=== PATIENT | male | born 1985 | race Caucasian/White ===

== ENCOUNTER 2017-04-06 20:15 | Emergency (ER) | payer SELFPAY ==
[~2017-04-06] VITALS: Ht 172.7 cm; Wt 86.2 kg
[2017-04-06] MEDS ORDERED: DIAZ10TA PO (21:00)
[2017-04-06] MEDS ORDERED: PROP20TA7 PO (21:00)
[2017-04-06] MEDS ORDERED: CLON0.1T PO (21:00)
[2017-04-06] MEDS ORDERED: GABA800T2 PO (21:00)
[2017-04-06] MEDS ORDERED: MELO-105 PO (21:00)
[2017-04-06] MEDS ORDERED: TRAZ-144 PO (21:00)
[2017-04-06] MEDS ORDERED: GUAI-175 PO (21:00)
[2017-04-06] MEDS ORDERED: MIRT30TA7 PO (21:00)
[2017-04-06] MEDS ORDERED: METH500T PO (21:00)
[2017-04-06] MEDS ORDERED: NYQUIL PO (21:00)
[2017-04-06] MEDS ORDERED: SUBUTEX SL (21:00)
--- NOTE | 2017-04-06 21:00 | NUR ---
Pt ambulated to room with steady gait and placed on monitor. Pt c/o generalized chest pain, cough, pain with deep breathing and hoarse throat for 2 days. Pt sts he shared cigarettes with his two of his roomates that recently had pna and is concerned he might have pna. Pt NSR on monitor. Resp even and unlabored, no resp distress noted. Pt seen by Dr. Serrano, awaiting further orders. EKG obtained.
[2017-04-06 21:15] LABS: BASOPHILS # (AUTO) 0.1 K/uL (0.0-8.0); BASOPHILS % (AUTO) 0.9 % (0.0-2.0); EOSINOPHILS % (AUTO) 13.3 % (0.0-7.0); HEMATOCRIT 39.3 % (40-50); HEMOGLOBIN 13.1 G/DL (14.0-18.0); LYMPHOCYTES # (AUTO) 2.7 K/UL (0.8-4.8); LYMPHOCYTES % (AUTO) 34.7 % (20.5-51.5); MEAN CORPUSCULAR HEMOGLOBIN 27.7 UUG (27.0-31.0); MEAN CORPUSCULAR HGB CONC 33 g/dL (32.0-37.0); MEAN CORPUSCULAR VOLUME 82.9 FL (82.0-92.0); MONOCYTES # (AUTO) 1.1 K/UL (0.1-1.30); MONOCYTES % (AUTO) 13.9 % (0.0-11.0); NEUTROPHILS # (AUTO) 2.8 K/UL (1.8-8.9); NEUTROPHILS % (AUTO) 37.2 % (38.5-71.5); PLATELET COUNT (AUTO) 252 K/UL (150-450); RED BLOOD CELL COUNT(AUTO) 4.74 MIL/UL (4.7-6.1); WHITE BLOOD COUNT (AUTO) 7.7 K/UL (4.0-11.2)
[2017-04-06 21:16] LABS: CREATININE 1.1 mg/dL (0.6-1.3); POTASSIUM 3.9 mmol/L (3.5-5.1)
[2017-04-06 21:28] LABS: BILIRUBIN,DIRECT 0.1 mg/dL (0.0-0.2); BILIRUBIN,TOTAL 0.2 mg/dL (0.2-1.0); TOTAL PROTEIN, SERUM 7.1 g/dL (6.4-8.2)
--- NOTE | 2017-04-06 22:31 | NUR ---
Pt not wanting to stay for repeat troponin. Pt stable for discharge per Dr. Serrano. Pt and his detox district administrative assistant given ACI. Both verbalized understanding of dc instructions. Pt ambulated out of ER with steady gait.
[2017-04-06 22:43] VITALS: BP 107/50
== END 2017-04-06 22:44 | disposition home or self-care (01) ==
LOC: ER 20:16
DX: J20.9 Acute bronchitis, unspecified (principal); R07.89 Other chest pain; F11.20 Opioid dependence, uncomplicated; F17.200 Nicotine dependence, unspecified, uncomplicated
CPT/HCPCS: 36415; 70030-TC; 71010; 85025; 93005; A4663; J7512

== ENCOUNTER 2017-04-15 14:41 | Inpatient (IN) | payer OTHER ==
[~2017-04-15] VITALS: Ht 172.7 cm; Wt 74.8 kg
[~2017-04-15 14:41] MED LIST: CLON0.1T PO; DIAZ10TA PO; GABA800T2 PO; GUAI-175 PO; MELO-105 PO; METH500T PO; MIRT30TA7 PO; NYQUIL PO; PROP20TA7 PO; SUBUTEX SL; TRAZ-144 PO
--- NOTE | 2017-04-15 16:25 | NUR ---
PREADMISSION NOTE 31 year old male, met in intake by RN. Admitting for heroin and Xanax detox. BP 131/72, pulse 92, RR 16, pulse oximetry [address] Holcomb interviewing patient. History of using Heroin x 13 years, currently using 1.5-2.0 grams per day, last use 04/12. Xanax given to Pt as an inpatient in a recent detox center, states was receiving 10 mg q 4 hrs. Upon discharge he took Xanax 1 mg x 10 tabs, taken on 04/09/17 on 04/10/17. NKA. NKFA. Recent admission to a detox center on 04/12/17, stayed 48 hours, then was admitted to [facility]. States he overdosed and was given Narcan. Was also treated for abscess on thigh, abscess was drained, was given po and IV antibiotics. Dressing on thigh dry and intact. States he is homeless and not working at this time. Intake to bring patient to room 308. RN will continue with admission at that time.
--- NOTE | 2017-04-15 16:35 | NUR ---
ADMISSION NOTE 31 year old male admitted for Heroin and Xanax substance abuse. History of Hep C, L4-5 disc herniation. History of detox center admission x 2 and admission to general hospital in last 2 weeks. General hospital admission for cellulitis of right posterior thigh treated with I+D and IV antibiotics. States he was sober 111 days prior to this last 3 weeks of using. Substance use history 1. Heroin, 1.5-2.0 gm IV per day x 3 weeks. Last use 1.5 gm IV on 04/12/17. Using Heroin x 13 years. 2. Xanax, states he was receiving Xanax 10 mg q 4 hours while in detox, upon discharge he used Xanax 10 mg on 04/10/17. NKA, NKFA. Full code, regular diet. Photo taken of wound right posterior thigh. Skin check done. Oriented to unit. Admission assessments in progress. Bed in low position, locked, side rails up, call madison within reach. Will continue to monitor.
[2017-04-15] MEDS ORDERED: LOPERAMIDE HCL 2 MG CAPSULE PO PRN ×2 (16:45)
[2017-04-15] MEDS ORDERED: HYDROXYZINE PAMOATE 25 MG CAPSULE PO PRN (16:45)
[2017-04-15] MEDS ORDERED: DICYCLOMINE HCL 20 MG TABLET PO PRN (16:45)
[2017-04-15] MEDS ORDERED: MIRALAX 17 GM POWD.PACK PO PRN (16:45)
[2017-04-15] MEDS ORDERED: ACETAMINOPHEN 325 MG TABLET PO PRN (16:45)
[2017-04-15] MEDS ORDERED: IBUPROFEN 600 MG TABLET PO PRN (16:45)
[2017-04-15] MEDS ORDERED: diphenhydrAMINE 50 MG CAPSULE PO PRN (16:45)
[2017-04-15] MEDS ORDERED: MAGNESIUM HYDROXIDE 30 ML LIQUID UDC PO PRN (16:45)
[2017-04-15] MEDS ORDERED: MAG HYDROX/AL HYDROX/SIMETH 30 ML LIQUID UDC PO PRN (16:45)
[2017-04-15] MEDS ORDERED: CLONIDINE HCL 0.1 MG TABLET PO PRN (16:45)
[2017-04-15] MEDS ORDERED: ONDANSETRON 4 MG/2 ML VIAL IM PRN (16:45)
[2017-04-15 17:07] LABS: *AMPHETAMINE, URINE NEGATIVE (NEGATIVE); *BARBITURATE, URINE POSITIVE (NEGATIVE); *CANNABINOID, URINE NEGATIVE (NEGATIVE); *COCCAINE, URINE NEGATIVE (NEGATIVE); *OPIATE, URINE POSITIVE (NEGATIVE); *PHENCYCLIDINE SCREEN,URINE NEGATIVE (NEGATIVE)
[2017-04-15] MEDS: BUPRENORPHINE HCL 2 MG TAB.SUBL SL SCH ×2 (17:26→20:12)
[2017-04-15] MEDS: LORAZEPAM 1 MG TABLET PO SCH ×2 (17:27→20:12)
--- NOTE | 2017-04-15 19:30 | NUR ---
START OF SHIFT Pt is a 31 y/o male admitted during day shift for opiate and benzo dependence. Pt was dependent on heroin IV 1.5-2 grams daily and Xanax 10 mg daily for 3 weeks. Pt is full code, regular diet, NKA, and seizure/fall precautions. No known seizure history. Pt reports PMH of hepatitis C, L4-L5 herniation, and rheumatoid arthritis. Pt started a 5 day Ativan and 5 day Subutex taper today, tolerating well. Upon assessment pt is laying in bed and presents with chills, anxiety, teary eyes, runny nose, body aches, nausea, mild restlessness, and sweats. Pt also reports joint pains r/t arthritis and right posterior thigh pain r/t localized abscess /cellulitis 01/05. Pt has a dry dressing intact for abscess/cellulitis with mild exudate. Site is red and painful. Respirations 18, even and unlabored. Denies V/D. Denies chest pain or SOB. Medications due. Safety measures in place. Call light within reach. Will continue to monitor.
--- NOTE | 2017-04-15 19:34 | NUR ---
END OF SHIFT NOTE 31 year old male admitted for Heroin and Xanax substance abuse. History of Hep C, L4-5 disc herniation. History of detox center admission x 2 and admission to general hospital in last 2 weeks. General hospital admission for cellulitis of right posterior thigh treated with I+D and IV antibiotics. NKA, NKFA. Full code, regular diet. Photo taken of wound right posterior thigh. COW 12 and given Subutex 4 mg and Ativan 2 mg approximately 1700. Admission assessments completed. Report given to night RN. Bed in low position, locked, side rails up, call madison within reach.
[2017-04-15 20:00] VITALS: BP 119/83
[2017-04-15 20:04] LABS: BASOPHILS # (AUTO) 0.1 K/uL (0.0-8.0); BASOPHILS % (AUTO) 0.6 % (0.0-2.0); EOSINOPHILS # (AUTO) 1.6 K/uL (0.0-0.7); HEMATOCRIT 38.1 % (40-50); HEMOGLOBIN 12.4 G/DL (14.0-18.0); LYMPHOCYTES # (AUTO) 1.7 K/UL (0.8-4.8); MEAN CORPUSCULAR HEMOGLOBIN 26.9 UUG (27.0-31.0); MEAN CORPUSCULAR HGB CONC 32 g/dL (32.0-37.0); MEAN CORPUSCULAR VOLUME 82.8 FL (82.0-92.0); MONOCYTES % (AUTO) 10.6 % (0.0-11.0); NEUTROPHILS % (AUTO) 53.8 % (38.5-71.5); PLATELET COUNT (AUTO) 267 K/UL (150-450); WHITE BLOOD COUNT (AUTO) 9.4 K/UL (4.0-11.2)
[2017-04-15] MEDS: METHOCARBAMOL 750 MG TABLET PO PRN (20:12)
[2017-04-15] MEDS: SULFAMETH/TRIMETH 800/160 MG TABLET PO SCH (20:12)
--- NOTE | 2017-04-15 20:12 | NUR ---
ROBAXIN AND ZOFRAN ADMINISTRATION Pt reports body aches r/t withdrawal 01/05. Robaxin 750 ml administered at 2011. Pt also reports nausea, no episodes of vomiting. Zofran 4 mg administered at 2055. Safety measures in place. Call light within reach. Will continue to monitor.
[2017-04-15] MEDS: GABAPENTIN 400 MG CAPSULE PO SCH (20:14)
[2017-04-15 20:18] LABS: ALANINE AMINOTRANSFERASE 54 U/L (16-63); ALKALINE PHOSPHATASE 65 U/L (50-136); ASPARTATE AMINOTRANSFERASE 42 U/L (15-37); BILIRUBIN,TOTAL 0.3 mg/dL (0.2-1.0); CARBON DIOXIDE 29 mmol/L (21-32); CHLORIDE 104 mmol/L (98-107); CREATININE 0.9 mg/dL (0.6-1.3); GLUCOSE 118 mg/dL (74-106); MAGNESIUM 2.3 mg/dL (1.8-2.4); POTASSIUM 4.4 mmol/L (3.5-5.1); TOTAL PROTEIN, SERUM 7.5 g/dL (6.4-8.2); UREA NITROGEN, BLOOD 12 mg/dL (7-18)
[2017-04-15 20:26] LABS: ETHANOL < 3 MG/DL (0-0)
[2017-04-15] MEDS: ONDANSETRON ODT 4 MG TAB.RAPDIS SL PRN (20:56)
--- NOTE | 2017-04-15 21:26 | NUR ---
PRN ROBAXIN AND ZOFRAN REASSESSMENT Pt reports improvement in nausea and body aches, but states pain 4/10 still. Safety measures in place. Call light within reach. Will continue to monitor.
--- NOTE | 2017-04-15 22:30 | NUR ---
DRY DRESSING APPLICATION Pt took a shower and removed previously applied dry dressing on posterior right thigh. Rinsed site with normal saline and applied dry dressing. Site is red with small purulent exudate present in the center.
--- NOTE | 2017-04-15 22:34 | NUR ---
PRN CLONIDINE AND MOTRIN ADMINISTRATION Pt presents with anxiety, agitation, restlessness, sweats, flushed skin. BP 119/83. PRN Clonidine 0.1 mg administered. Pt also reports localized pain in right posterior thigh 5/10 r/t abscess/cellulitis and persistent body aches r/t withdrawal. PRN Motrin 600 mg administered. Safety measures in place. Call light within reach. Will continue to monitor.
[2017-04-15] MEDS: BUPRENORPHINE HCL 2 MG TAB.SUBL SL PRN (23:47)
--- NOTE | 2017-04-15 23:47 | NUR ---
PRN BENADRYL AND SUBUTEX ADMINISTRATION AND PRN MOTRIN AND CLONIDINE REASSESSMENT Pt requests sleep aid, 50 mg Benadryl administered. COW 12, PRN Subutex 4 mg administered. Pt presents with anxiety, agitation, chills, sweats, flushed skin, teary eyes, runny nose, body aches, and restlessness. Pt reports the pain in right posterior thigh improved. Pt reports that Clonidine "does not typically help" with his withdrawal symptoms. Anxiety, sweats, chills still present at this time. BP 134/72. Safety measures in place. Call light within reach. Will continue to monitor.
[2017-04-16] VITALS: BP 134/72
[2017-04-16] MEDS ORDERED: LORAZEPAM 1 MG TABLET PO ONE (00:15)
--- NOTE | 2017-04-16 00:47 | NUR ---
2 MG ATIVAN X 1 ADMINISTRATION AND PRN SUBUTEX AND BENADRYL REASSESSMENT COW 7. Anxiety and mild restlessness present. Safety measures in place Call light within reach. Will continue to monitor.
--- NOTE | 2017-04-16 01:45 | NUR ---
2 MG ATIVAN X 1 REASSESSMENT COW lowered to 5. Pt has improved anxiety, agitation, tremors, restlessness. Pt is laying in bed watching tv. Safety measures in place. Call light within reach. Will continue to monitor.
[2017-04-16 04:00] VITALS: BP 101/66
--- NOTE | 2017-04-16 04:00 | NUR ---
COW DEFERRED Pt is laying in bed with eyes closed. COW deferred, to be assessed when pt is fully awake per orders. Respirations 16, even and unlabored. Safety measures in place. Call light within reach. Will continue to monitor.
--- NOTE | 2017-04-16 06:50 | NUR ---
PRN 4 MG SUBUTEX ADMINISTERED Pt woke up with irritability, restlessness, anxiety, sweats, flushed skin, teary eyes, runny nose, and states "skin is crawling out of my skin." COW 12. Safety measures in place. Call light within reach. Will continue to monitor.
[2017-04-16] MEDS: BUPRENORPHINE HCL 2 MG TAB.SUBL SL PRN (06:55)
--- NOTE | 2017-04-16 07:32 | NUR ---
PRN 4 MG SUBUTEX REASSESSMENT COW lowered to 6. Pt has reduced anxiety and overall improvement in S/S of withdrawal. Safety measures in place. Call light within reach. Will continue to monitor.
--- NOTE | 2017-04-16 07:33 | NUR ---
END OF SHIFT Pt is a 31 y/o male admitted during day shift for opiate and benzo dependence. Pt was dependent on heroin IV 1.5-2 grams daily and Xanax 10 mg daily for 3 weeks. Pt is full code, regular diet, NKA, and seizure/fall precautions. No known seizure history. Pt reports PMH of hepatitis C, L4-L5 herniation, and rheumatoid arthritis. Pt started a 5 day Ativan and 5 day Subutex taper today, tolerating well. Pt was positive for barbiturates per UDS, but pt reports I dont know what those are and does not recall ever taking any. Pt presented with chills, anxiety, teary eyes, runny nose, body aches, nausea, mild restlessness, and sweats. Pt also reported joint pains r/t arthritis and right posterior thigh pain r/t localized abscess /cellulitis 01/05. Pt has a dry dressing intact for abscess/cellulitis with mild exudate. Site is red and painful. Scheduled medications and PRN Clonidine, Motrin, Robaxin, Zofran, Benadryl, Subutex 4 mg, and x 1 Ativan 2 mg administered, temporarily effective in S/S of withdrawal AEB COW lowered from 12 to 6 during shift. Last COW 12 at 0650, pt woke up with irritability, anxiety, restlessness, sweats, chills, teary eyes and reports "skin is crawling out of my skin," COW 12. Second PRN 4 mg Subutex administered. Pt slept 4.5 hours, intermittently throughout the night. Intake 299 ml, void x 2, stool x 0. Safety measures in place. Call light within reach. Pts needs have been met. Endorsed to day shift nurse.
--- NOTE | 2017-04-16 07:45 | NUR ---
START OF SHIFT Rcvd endorsement from ongoing nurse, client is in bed, he is a/o x 4, he presents with depressed mood, flat affect, watery eyes, runny nose, goosebumps. Client reports chills, body aches and no appetite. Client is on antibiotic therapy Bactrim DS Q12H X 7 days for Right lower extremity abscess (sp I & D two days prior to admission), scant serosanguineous drainage noted. Client noted with well healed track hinds on bilateral forearms. Redness noted on Left AC, skin intact, client stated I was shooting heroin). Encouraged client to attend group therapy for skills to maintain sober. Encouraged client to increase PO fluid as tolerated to facilitate detox. Client is a 31 y/o male, admitted to [facility] for withdrawal from alprazolam and heroin. Client is on 5 day Ativan/Subutex taper, tolerating well. Last CIWA 6 @ 0730. He denies any hx of withdrawal-induced seizures, he is on seizure precautions. He reports of NKA, he is full code, Regular diet. Side rails x 2 up/padded. Call light within reach.
[2017-04-16 08:34] VITALS: BP 109/70
[2017-04-16] MEDS ORDERED: TUBERCULIN,PURIF.PROT.DERIV. 5 TU/0.1 ML TEST ID ONE (09:00)
[2017-04-16] MEDS ORDERED: LORAZEPAM 1 MG TABLET PO SCH (09:00)
[2017-04-16] MEDS: GABAPENTIN 400 MG CAPSULE PO SCH ×3 (09:44→20:49)
[2017-04-16] MEDS: SULFAMETH/TRIMETH 800/160 MG TABLET PO SCH ×2 (09:44→20:49)
[2017-04-16] MEDS: BUPRENORPHINE HCL 2 MG TAB.SUBL SL SCH ×3 (09:45→20:49)
--- NOTE | 2017-04-16 09:45 | NUR ---
TB test administered to L forearm, client tolerated well.
[2017-04-16] MEDS: ONDANSETRON ODT 4 MG TAB.RAPDIS SL PRN ×2 (10:02→20:49)
--- NOTE | 2017-04-16 10:02 | NUR ---
Zofran 4mg SL administered for intermittent nausea, no episode of emesis. Shruti ady and saltine crackers affered to client. Will continue to monitor. Call light within reach.
--- NOTE | 2017-04-16 11:02 | NUR ---
Reassessment Zofran 4mg SL effective, client reports relief from nausea. Will continue to monitor. Call light within reach.
[2017-04-16] MEDS ORDERED: DIAZEPAM 10 MG TABLET PO PRN ×2 (12:45)
[2017-04-16] MEDS ORDERED: DIAZEPAM 5 MG TABLET PO PRN (12:45)
[2017-04-16 12:50] VITALS: BP 97/54
[2017-04-16] MEDS: DIAZEPAM 10 MG TABLET PO SCH ×2 (14:30→20:49)
[2017-04-16] MEDS ORDERED: TRAZODONE 100 MG TABLET PO PRN (15:15)
[2017-04-16] MEDS ORDERED: ALBU1.25 IH (16:13)
[2017-04-16] MEDS ORDERED: lidocaine patch SUBCUT (16:16)
[2017-04-16] MEDS ORDERED: VENTOLIN INH PRN (16:30)
[2017-04-16 16:55] VITALS: BP 105/65
--- NOTE | 2017-04-16 19:15 | NUR ---
END OF SHIFT Client is a 31 y/o male, admitted to [facility] for withdrawal from alprazolam and heroin. Client is on 4 day Valium /5 day Subutex taper, tolerating well. Last CIWA 6/COWS 7 @ 1630. PRN Zofran 4mg SL for nausea, noted effective, Adequate PO fluid intake 1598, void x 4, stool x 1. Client not compliant with group therapy. Nurse practicioner is at bedside for wound consult on R thigh wound. He denies any hx of withdrawal-induced seizures, he is on seizure precautions. He reports of NKA, he is full code, Regular diet. Side rails x 2 up/padded. Call light within reach
[2017-04-16 20:00] VITALS: BP 119/62
[2017-04-16] MEDS: METHOCARBAMOL 750 MG TABLET PO PRN (20:49)
[2017-04-16] MEDS ORDERED: CLONIDINE HCL 0.1 MG TABLET PO SCH (21:00)
[2017-04-17 08:00] VITALS: BP 110/57
--- NOTE | 2017-04-17 08:30 | NUR ---
0900 meds: All due 0900 meds were given at 0830 per [facility] downtime.
[2017-04-17] MEDS ORDERED: BUPRENORPHINE HCL 2 MG TAB.SUBL SL SCH ×2 (09:00→15:00)
[2017-04-17] MEDS: DIAZEPAM 5 MG TABLET PO SCH ×3 (09:00→20:47)
[2017-04-17] MEDS ORDERED: LORAZEPAM 1 MG TABLET PO SCH (09:00)
[2017-04-17] MEDS: SULFAMETH/TRIMETH 800/160 MG TABLET PO SCH ×2 (09:00→20:47)
--- NOTE | 2017-04-17 10:04 | NUR ---
WOUND CARE CONSULT WOUND CARE WILL DEFER TO SURGICAL TEAM. THERE ARE CURRENT TREATMENT ORDERS IN PLACE. PATIENT WITH CURRENT TOVA AT 21.
[2017-04-17 10:09] LABS: HEPATITIS B SURFACE AG Negative (Negative)
[2017-04-17 12:00] VITALS: BP 105/64
[2017-04-17] MEDS: BUPRENORPHINE HCL 2 MG TAB.SUBL SL SCH ×3 (12:01→20:48)
[2017-04-17] MEDS: CLONIDINE HCL 0.1 MG TABLET PO SCH ×2 (14:16→20:47)
[2017-04-17] MEDS: GABAPENTIN 300 MG CAPSULE PO SCH ×2 (14:16→20:47)
[2017-04-17 16:00] VITALS: BP 125/66
--- NOTE | 2017-04-17 18:56 | NUR ---
End of Shift Notes: Patient continues to be on 5-day Subutex taper and 4-day Valium as ordered. No adverse reactions noted. Patient is tolerating taper well. VS monitored closely. No significant abnormalities noted. Patients withdrawal symptoms were closely monitored. Initial COWS 8/CIWA 5, patient presented with anxiety, agitation muscle aches, chills, and hot flashes. Last COWS 5/CIWA 5. Patients taper and scheduled dose modified by MD Holcomb. Per patient, it has been effective in reducing his withdrawal symptoms. Seen and evaluated today by Dr. Dave (psych) with new orders received. Orders noted and carried out. Patient is easily irritable and easily agitated. Wound care to right posterior thigh performed. No s/s of infection noted. Compliant with care and treatment. All needs met and attended. Will continue to monitor closely.
--- NOTE | 2017-04-17 19:10 | NUR ---
Start of shift note Received report from day shift nurse. Pt is a 31 yo male, A+Ox4, presenting to [facility] for Opiate/Benzo dependence. Pt has NKA, is on Full code status, and on Regular diet. Pt is on Fall and Seizure precautions. Pt has HX of Hep C+, herniated disc, RA, PTSD, depression, abscess on Right knee, tonsillectomy, and adenomectomy. Pt is on 5 day Subutex and 4 day Valium tapers, tolerated well. No s/s of distress noted at this time. Respirations even and unlabored. Will continue to monitor.
[2017-04-17 20:12] VITALS: BP 116/73
[2017-04-17] MEDS: QUETIAPINE FUMARATE 100 MG TABLET PO PRN (21:09)
--- NOTE | 2017-04-17 21:09 | NUR ---
PRN Seroquel Pt c/o inability to sleep and requested for PRN Seroquel. Medication given and tolerated well. Will reassess within 1 HR. Will continue to monitor.
--- NOTE | 2017-04-17 22:07 | NUR ---
PRN Seroquel Reassessment Medication effective. Pt is resting well in bed. No s/s of ASE/distress noted at this time. Respirations even and unlabored. Will continue to monitor.
[2017-04-18 00:18] VITALS: BP 124/68
[2017-04-18 04:12] VITALS: BP 125/73
--- NOTE | 2017-04-18 07:00 | NUR ---
End of shift note Pt is a 31 yo male, A+Ox4, presenting to [facility] for Opiate/Benzo dependence. Pt has NKA, is on Full code status, and on Regular diet. Pt is on Fall and Seizure precautions. Pt has HX of Hep C+, herniated disc, RA, PTSD, depression, abscess on Right knee, tonsillectomy, and adenomectomy. Pt is on 5 day Subutex and 4 day Valium tapers, tolerated well. Pt was given PRN Seroquel @5932. Pt slept for a total of 7 HRS. Last COWS: 3 and Last CIWA: 2 @0400. No s/s of distress noted at this time. Respirations even and unlabored. Will endorse to day shift nurse.
--- NOTE | 2017-04-18 07:01 | NUR ---
Start of Shift Notes: Received patient in his room. Alert and verbally responsive. Oriented x 4. Able to make needs known. Respirations even and unlabored. No SOB noted. Skin warm and dry to touch. Abdomen soft and non-distended. BS (+) in all 4 quadrants. No complains of N/V/D or constipation noted. Bladder non-distended. No dysuria. Voids independently. Ambulatory ad lenard with steady gait. Patient is a 31 year old male admitted for opiate and BZO dependence who was placed on a 5-day Subutex and 4-day Valium taper as ordered. No adverse reactions noted. Has past medical hx of Hep C, L4-L5 disc herniation, RA, PTSD, depression, appendectomy, tonsillectomy. Prior to admission, patient was using 1.5-2.0 grams of Heroin I daily x 3 weeks, and 10 mg of Xanax daily. NKA. FULL CODE. On a regular diet. On fall and seizure precautions. Educated patient on his current plan of care for the day and his medication regimen. Encouraged oral fluid intake and encouraged group participation to learn new skills to prevent relapse. Will continue to monitor.
[2017-04-18 08:00] VITALS: BP 115/71
[2017-04-18] MEDS: GABAPENTIN 300 MG CAPSULE PO SCH ×3 (08:15→21:02)
[2017-04-18] MEDS: SULFAMETH/TRIMETH 800/160 MG TABLET PO SCH ×2 (08:15→21:02)
[2017-04-18] MEDS: CLONIDINE HCL 0.1 MG TABLET PO SCH ×2 (08:15→14:01)
[2017-04-18] MEDS: DIAZEPAM 5 MG TABLET PO SCH ×2 (08:15→21:02)
[2017-04-18] MEDS ORDERED: LORAZEPAM 1 MG TABLET PO SCH (09:00)
[2017-04-18] MEDS ORDERED: BUPRENORPHINE HCL 2 MG TAB.SUBL SL SCH (09:00)
[2017-04-18] MEDS ORDERED: BACLOFEN 10 MG TABLET PO SCH (09:00)
--- NOTE | 2017-04-18 10:46 | NUR ---
Vistaril 25 mg PO given: Patient noted with complain of anxiety. Redirected with no help. Medicated patient with Vistaril 25 mg PO as ordered. Will monitor for effectiveness.
--- NOTE | 2017-04-18 11:46 | NUR ---
Re-assessment: Per patient, PRN Vistaril was mildly effective in reducing patient's anxiety.
[2017-04-18 12:00] VITALS: BP 131/86
[2017-04-18] MEDS: BUPRENORPHINE HCL 2 MG TAB.SUBL SL SCH ×2 (12:48→17:22)
[2017-04-18] MEDS ORDERED: OXCARBAZEPINE 150 MG TABLET PO ONE (13:00)
[2017-04-18] MEDS: BACLOFEN 20 MG TABLET PO SCH ×2 (14:01→21:02)
[2017-04-18] MEDS: ONDANSETRON ODT 4 MG TAB.RAPDIS SL PRN (15:34)
--- NOTE | 2017-04-18 15:34 | NUR ---
Zofran 4 mg SL given: Patient requested Zofran for nausea. No emesis noted. Medicated patient with Zofran 4 mg SL as ordered. Will monitor for effectiveness.
[2017-04-18 16:00] VITALS: BP 113/65
--- NOTE | 2017-04-18 16:34 | NUR ---
Re-assessment: Per patient, PRN Zofran was effective in reducing patient's nausea. No emesis noted.
--- NOTE | 2017-04-18 19:34 | NUR ---
End of Shift Notes: Patient continues to be on 5-day Subutex taper and 4-day Valium as ordered. No adverse reactions noted. Patient is tolerating taper well. VS monitored closely. No significant abnormalities noted. Patients withdrawal symptoms were closely monitored. Initial COWS 8/CIWA 7, patient presented with anxiety, agitation muscle aches, nausea, chills, and hot flashes. Last COWS 2/CIWA 3. Patients taper and scheduled dose modified by MD Holcomb. Per patient, it has been effective in reducing his withdrawal symptoms. Patient is easily irritable and easily agitated. Wound care to right posterior thigh performed. K-pad applied. No s/s of infection noted. Compliant with care and treatment. All needs met and attended. Will continue to monitor closely.
[2017-04-18 20:11] VITALS: BP 124/73
[2017-04-18] MEDS ORDERED: CLONIDINE HCL 0.2 MG TABLET PO SCH (21:00)
[2017-04-18] MEDS: OXCARBAZEPINE 150 MG TABLET PO SCH (21:02)
[2017-04-18] MEDS: QUETIAPINE FUMARATE 100 MG TABLET PO PRN (21:02)
--- NOTE | 2017-04-18 21:02 | NUR ---
PRN Seroquel Pt c/o inability to sleep and requested for PRN Seroquel. Medication given and tolerated well. Will reassess within 1 HR. Will continue to monitor.
[2017-04-19 00:25] VITALS: BP 122/71
[2017-04-19 04:27] VITALS: BP 119/75
--- NOTE | 2017-04-19 06:49 | NUR ---
End of shift note Pt is a 31 yo male, A+Ox4, presenting to [facility] for Opiate/Benzo dependence. Pt has NKA, is on Full code status, and on Regular diet. Pt is on Fall and Seizure precautions. Pt has HX of Hep C+, herniated disc, RA, PTSD, depression, abscess on Right knee, tonsillectomy, and adenomectomy. Pt is on 5 day Subutex and 4 day Valium tapers, tolerated well. Pt was given PRN Seroquel @2102. Pt slept for a total of 8 HRS. Last COWS: 3 and Last CIWA: 3 @0400. No s/s of distress noted at this time. Respirations even and unlabored. Will endorse to day shift nurse.
--- NOTE | 2017-04-19 07:45 | NUR ---
START OF SHIFT Rcvd endorsement from ongoing nurse, client is in bed, he is a/o x 4, he presents with depressed mood and flat affect. Client reports chills, body aches and abdominal cramps. Client is on antibiotic therapy Bactrim DS Q12H X 7 days for Right lower extremity abscess (sp I & D), scant serosanguineous drainage noted. Treatment apply warm packs to the area to promote drainage of the abscess. Well healed track hinds on bilateral forearms. Encouraged client to attend group therapy for skills to maintain sober. Encouraged client to increase PO fluid as tolerated to facilitate detox. Client is a 31 y/o male, admitted to [facility] for withdrawal from alprazolam and heroin. Client is on 5 day Ativan/Subutex taper, tolerating well. Last CIWA 3/COWS 3 @ 0400. PRN Seroquel 100mg for inability to sleep, he slept 8 hrs. He denies any hx of withdrawal-induced seizures, he is on seizure precautions. He reports of NKA, he is full code, Regular diet. Side rails x 2 up/padded. Call light within reach.
[2017-04-19 08:03] VITALS: BP 139/82
[2017-04-19] MEDS ORDERED: DIAZEPAM 5 MG TABLET PO SCH (09:00)
[2017-04-19] MEDS ORDERED: BUPRENORPHINE HCL 2 MG TAB.SUBL SL SCH (09:00)
[2017-04-19] MEDS ORDERED: LORAZEPAM 1 MG TABLET PO SCH (09:00)
[2017-04-19] MEDS: BACLOFEN 20 MG TABLET PO SCH ×3 (09:31→21:33)
[2017-04-19] MEDS: GABAPENTIN 300 MG CAPSULE PO SCH ×3 (09:31→21:35)
[2017-04-19] MEDS: OXCARBAZEPINE 150 MG TABLET PO SCH (09:32)
[2017-04-19] MEDS: SULFAMETH/TRIMETH 800/160 MG TABLET PO SCH ×2 (09:32→21:34)
[2017-04-19] MEDS: CLONIDINE HCL 0.1 MG TABLET PO SCH ×2 (09:32→21:34)
[2017-04-19] MEDS ORDERED: CLONIDINE HCL 0.2 MG TABLET PO ONE (11:30)
[2017-04-19] MEDS ORDERED: HYDROXYZINE PAMOATE 25 MG CAPSULE PO PRN (11:30)
[2017-04-19] MEDS ORDERED: HYDROXYZINE PAMOATE 25 MG CAPSULE PO ONE (11:30)
--- NOTE | 2017-04-19 11:33 | NUR ---
One time dose Vistaril 50mg PO & Clonidine 0.2mg PO administered for anxiety, irritability, mb open and closing fist, raising voice, pacing. Deep breathing demonstrated to client, reinforcement needed. Call light within reach.
[2017-04-19 12:00] VITALS: BP 108/67
--- NOTE | 2017-04-19 12:33 | NUR ---
Reassessment One time dose Vistaril 50mg PO & Clonidine 0.2mg PO, he states, "I feel better, thank you." Client is able to join peers at [facility].
[2017-04-19] MEDS ORDERED: OXCARBAZEPINE 150 MG TABLET PO ONE (15:00)
[2017-04-19] MEDS ORDERED: CLONIDINE HCL 0.2 MG TABLET PO SCH (15:00)
--- NOTE | 2017-04-19 15:15 | NUR ---
Client refused Clonidine 0.2mg PO stating, "It make me very sleepy."
[2017-04-19 16:55] VITALS: BP 111/69
[2017-04-19] MEDS ORDERED: BACL20TA PO (19:11)
[2017-04-19] MEDS ORDERED: IBUP-1955 PO (19:11)
[2017-04-19] MEDS ORDERED: OXCA300T4 PO (19:11)
[2017-04-19] MEDS ORDERED: QUET100T PO (19:11)
[2017-04-19] MEDS ORDERED: HYDR-3895 PO (19:11)
[2017-04-19] MEDS ORDERED: SULF1TAB3 PO (19:11)
[2017-04-19] MEDS ORDERED: DICY20TA28 PO (19:11)
[2017-04-19] MEDS ORDERED: CLON0.1T14 PO (19:11)
[2017-04-19] MEDS ORDERED: GABA-534 PO (19:11)
--- NOTE | 2017-04-19 19:25 | NUR ---
START OF SHIFT Patient is a 31-year-old male admitted to 04/15/17 for heroin and xanax dependence. Patient has a history of L4-L5 herniation, RA, HEP C, PTSD, depression, and accidental intoxication induced overdoses. Patients past surgical history: adenoidectomy, tonsillectomy, and abscess incision and drainage (right posterior thigh). Patient is FULL code, NKA, and on regular diet. Upon assessment, patient is alert and oriented x4, complains of nausea, skin is slightly moist. Patient has an abscess on his right posterior thigh; patient denies pain or tenderness at site, scant serosanguinous drainage noted. Patient is currently on antibiotic therapy, Bactrim DS Q12H x 7 days for the abscess. Patient was started on a 5 day Subutex taper and a 5 day Ativan taper, but on the second day was switched to Valium; tolerating well. Patient is on fall and seizure precautions. Patients bed is locked in low position, side rails up x2, call light within reach. Will continue to monitor.
--- NOTE | 2017-04-19 19:30 | NUR ---
END OF SHIFT Client is a 31 y/o male, a/o x 4, he was admitted to [facility] for withdrawal from alprazolam and heroin. Client completed 5 day Ativan/Subutex taper, tolerated well. Last CIWA 3/COWS 3 @ 1600. One time dose Vistaril 50mg PO & Clonidine 0.2mg PO administered for anxiety, irritability, MB open and closing fist, raising voice, pacing., noted effective. Abscess on R posterior thigh diminishing in size, scant serosanguineous drainage noted, tx with warm packs tolerated well. Client is schedule for discharge tomorrow to [facility]. Client was compliant with 2/3 of group therapy for skills to maintain sober. Adequate PO fluid intake 1247mL, void x2, stool x 1. He denies any hx of withdrawal-induced seizures, he is on seizure precautions. He reports of NKA, he is full code, Regular diet. Side rails x 2 up/padded. Call light within reach. Endorsed to incoming nurse.
[2017-04-19 20:00] VITALS: BP 120/74
[2017-04-19] MEDS: OXCARBAZEPINE 300 MG TABLET PO SCH (21:33)
[2017-04-19] MEDS: ONDANSETRON ODT 4 MG TAB.RAPDIS SL PRN (21:34)
--- NOTE | 2017-04-19 21:34 | NUR ---
PRN ZOFRAN Patient reports nausea without episode of vomit. Patient requested medication to reduce nausea. PRN Zofran 4mg SL was given for nausea. Patient's respirations are even and unlabored, bed in low position, side rails up x2, call light within reach. Will reassess in half an hour.
--- NOTE | 2017-04-19 22:04 | NUR ---
PRN ZOFRAN REASSESSMENT PRN Zofran effective, patient reports decreased nausea. Safety measures in place, will continue to monitor.
--- NOTE | 2017-04-20 | NUR ---
MIDNIGHT VITALS, CIWA & COWS Patient refused to be woken up for midnight vital signs. CIWA and COWS unable to score while patient is asleep, to be assessed when awake per protocol. Safety measures in place, will continue to monitor.
--- NOTE | 2017-04-20 04:00 | NUR ---
0400 VITALS, CIWA & COWS Patient refused to be woken up for 0400 vital signs. Patient's respirations are even and unlabored, no distress noted at this time. CIWA and COWS scores unable to be assessed while patient is asleep, to be scored while awake per protocol. Safety measures in place, will continue to monitor.
--- NOTE | 2017-04-20 07:09 | NUR ---
END OF SHIFT Patient is a 31-year-old male admitted to 04/15/17 for heroin and xanax dependence. Patient has a history of L4-L5 herniation, RA, HEP C, PTSD, depression, and accidental intoxication induced overdoses. Patients past surgical history: adenoidectomy, tonsillectomy, and abscess incision and drainage (right posterior thigh). Patient is FULL code, NKA, and on regular diet. Patient has an abscess on his right posterior thigh; patient denies pain or tenderness at site, scant serosanguinous drainage noted. Patient received PRN Zofran for nausea; was effective. Patient slept for 8.5 hours, intake 1210mL, void x3, no BM. Patient is scheduled for discharge today. Patient is on fall and seizure precautions. Patients bed is locked in low position, side rails up x2, call light within reach. Will endorse to day shift.
--- NOTE | 2017-04-20 07:10 | NUR ---
Start of Shift Endorsement received from nightshift nurse. PT is a 31 y/o male admitted for Heroin and Xanax dependence. Pt has been placed on a 5 day Subutex and 4 day Valium taper. PT has completed both tapers. Pt is mildly withdrawing AEB COWS 3, CIWA 4 at 0400. Pt has been scheduled to be discharged today. Pt received PRN Zofran for nausea. Pt reports sleeping 8 hours. VS WNL. Full Code. PT is alert and oriented x4. Pt is in STABLE condition at this time. Remains compliant with medication and diet regimen. All needs have been met, All safety measures in place per hospital policy. Bed in lowest position, side rails up x2, call-light within reach. Will continue to monitor
[2017-04-20 08:00] VITALS: BP 133/75
[2017-04-20 08:16] VITALS: BP 125/72
[2017-04-20] MEDS: SULFAMETH/TRIMETH 800/160 MG TABLET PO SCH (08:16)
[2017-04-20] MEDS: OXCARBAZEPINE 300 MG TABLET PO SCH (08:16)
[2017-04-20] MEDS: BACLOFEN 20 MG TABLET PO SCH (08:16)
[2017-04-20] MEDS: GABAPENTIN 300 MG CAPSULE PO SCH (08:16)
[2017-04-20] MEDS: CLONIDINE HCL 0.1 MG TABLET PO SCH (08:16)
--- NOTE | 2017-04-20 09:35 | NUR ---
Discharge note PT has been discharged from [facility]. PT is in Stable condition, VS WNL. Denies suicidal and homicidal ideations at this time. . All documentation has been completed, paperwork signed and dated. Pt left with all of his belongings, medications and prescriptions. Pt has been discharged from [place] on 04/20/17 at 0935. has been Notified.
== END 2017-04-20 09:35 | disposition other institution (70) | DRG 895 ==
LOC: SRC 15:32
PROVIDERS: ADMIT Internal Medicine; ATTEND Internal Medicine
PROC: HZ2ZZZZ Detoxification Services for Substance Abuse Treatment (ICD-10-PCS; principal; 2017-04-15)
PROC: HZ31ZZZ Individual Counseling for Substance Abuse Treatment, Behavioral (ICD-10-PCS; 2017-04-17)
PROC: HZ41ZZZ Group Counseling for Substance Abuse Treatment, Behavioral (ICD-10-PCS; 2017-04-18)
DX: F11.23 Opioid dependence with withdrawal (principal); F13.232 Sedative, hypnotic or anxiolytic dependence with withdrawal with perceptual disturbance; L02.415 Cutaneous abscess of right lower limb; L03.115 Cellulitis of right lower limb; F17.210 Nicotine dependence, cigarettes, uncomplicated; B95.62 Methicillin resistant Staphylococcus aureus infection as the cause of diseases classified elsewhere; Z59.0 Homelessness; Z91.89 Other specified personal risk factors, not elsewhere classified; F43.10 Post-traumatic stress disorder, unspecified; Z82.49 Family history of ischemic heart disease and other diseases of the circulatory system; Z81.1 Family history of alcohol abuse and dependence; Z81.3 Family history of other psychoactive substance abuse and dependence; F32.9 Major depressive disorder, single episode, unspecified; B19.20 Unspecified viral hepatitis C without hepatic coma; D64.9 Anemia, unspecified; R73.9 Hyperglycemia, unspecified
CPT/HCPCS: 36415; 70030-TC; 80307; 80345; 80346; 80361; 83735; 85025; 86580; 86592; 86705; 86803; 87340; 87806; A4663; G0480; Q0162; Q0163